=== PATIENT | female | born 1960 | race Caucasian/White ===

== ENCOUNTER → 2020-05-14 12:13 | Outpatient (BNVA) | payer MEDICARE, MEDICAID, SELFPAY | PROVIDERS: PCP Internal Medicine; Referring Provider Internal Medicine; Visit Provider Student in an Organized Health Care Education/Training Program | DX: M25.50 Pain in unspecified joint (principal); M67.911 Unspecified disorder of synovium and tendon, right shoulder | CPT/HCPCS: 20610; 99202 ==

== ENCOUNTER 2020-06-04 09:32 | Outpatient (REF) | payer MEDICARE, MEDICAID, SELFPAY ==
--- NOTE | ~2020-06-04 | XR_ITS ---
EXAMINATION: BILATERAL SHOULDER. CERVICAL SPINE 3 VIEWS. CLINICAL INFORMATION: Bilateral shoulder pain. Neck pain. COMPARISON: None TECHNIQUE: 3 views each shoulder. Cervical spine 4 views. FINDINGS: CERVICAL SPINE: There is mild straightening of cervical lordosis. There is loss of C4-C5, C5-C6 and C6-C7 disc heights with moderate ventral spondylosis. Rest the disc heights are normal. No visible acute fracture, dislocation or lytic process seen. There is moderate bilateral facet arthropathy at C3-C4 on the right bilaterally C4-C5 and C5-C6 disc levels. The prevertebral soft tissues are normal. RIGHT SHOULDER: There is a small inferior acromial spurring. Mild loss of right AC joint is seen. The glenohumeral joint space is normal. There is no acute fracture, dislocation or lytic process seen. LEFT SHOULDER: The glenohumeral joint space is reduced with mild inferior spurring. The AC joint space is minimal diffuse. No visible fracture, dislocation or subluxation seen. The soft tissues are normal. XR/XR shoulder RT min 2V IMPRESSION: General disc changes C4-C5 through C6-C7 disc level. No, dislocation or subluxation seen. No visible acute fracture or dislocation seen. Mild degenerative changes bilateral glenohumeral and AC joints. There is inferior right acromial and lateral humeral head spurring.
--- NOTE | ~2020-06-04 | XR_ITS ---
EXAMINATION: BILATERAL SHOULDER. CERVICAL SPINE 3 VIEWS. CLINICAL INFORMATION: Bilateral shoulder pain. Neck pain. COMPARISON: None TECHNIQUE: 3 views each shoulder. Cervical spine 4 views. FINDINGS: CERVICAL SPINE: There is mild straightening of cervical lordosis. There is loss of C4-C5, C5-C6 and C6-C7 disc heights with moderate ventral spondylosis. Rest the disc heights are normal. No visible acute fracture, dislocation or lytic process seen. There is moderate bilateral facet arthropathy at C3-C4 on the right bilaterally C4-C5 and C5-C6 disc levels. The prevertebral soft tissues are normal. RIGHT SHOULDER: There is a small inferior acromial spurring. Mild loss of right AC joint is seen. The glenohumeral joint space is normal. There is no acute fracture, dislocation or lytic process seen. LEFT SHOULDER: The glenohumeral joint space is reduced with mild inferior spurring. The AC joint space is minimal diffuse. No visible fracture, dislocation or subluxation seen. The soft tissues are normal. XR/XR cervical spine 2V IMPRESSION: General disc changes C4-C5 through C6-C7 disc level. No, dislocation or subluxation seen. No visible acute fracture or dislocation seen. Mild degenerative changes bilateral glenohumeral and AC joints. There is inferior right acromial and lateral humeral head spurring.
--- NOTE | ~2020-06-04 | XR_ITS ---
EXAMINATION: BILATERAL SHOULDER. CERVICAL SPINE 3 VIEWS. CLINICAL INFORMATION: Bilateral shoulder pain. Neck pain. COMPARISON: None TECHNIQUE: 3 views each shoulder. Cervical spine 4 views. FINDINGS: CERVICAL SPINE: There is mild straightening of cervical lordosis. There is loss of C4-C5, C5-C6 and C6-C7 disc heights with moderate ventral spondylosis. Rest the disc heights are normal. No visible acute fracture, dislocation or lytic process seen. There is moderate bilateral facet arthropathy at C3-C4 on the right bilaterally C4-C5 and C5-C6 disc levels. The prevertebral soft tissues are normal. RIGHT SHOULDER: There is a small inferior acromial spurring. Mild loss of right AC joint is seen. The glenohumeral joint space is normal. There is no acute fracture, dislocation or lytic process seen. LEFT SHOULDER: The glenohumeral joint space is reduced with mild inferior spurring. The AC joint space is minimal diffuse. No visible fracture, dislocation or subluxation seen. The soft tissues are normal. XR/XR shoulder LT min 2V IMPRESSION: General disc changes C4-C5 through C6-C7 disc level. No, dislocation or subluxation seen. No visible acute fracture or dislocation seen. Mild degenerative changes bilateral glenohumeral and AC joints. There is inferior right acromial and lateral humeral head spurring.
[2020-06-04 10:22] LABS: MANUAL DIFF FLAG NO
[2020-06-04 10:29] LABS: Basophils Absolute Auto 0.1 X10*3/uL (0.0-0.2); Basophils Percent Auto 0.8 % (0-2); Eosinophils Absolute Auto 0.2 X10*3/uL (0.0-0.4); Eosinophils Percent Auto 2.9 % (0-4); Hematocrit 41.7 % (37-47); Hemoglobin 13.9 g/dl (12.0-16.0); Imm Gran Abs Auto 0.02 X10*3/uL (0.00-0.03); Imm Gran Pct Auto 0.3 % (0.0-0.4); Lymphocytes Absolute Auto 2.6 X10*3/uL (1.2-4.9); Lymphocytes Percent Auto 36.7 % (20-40); Mean Corpuscular HGB Conc 33.3 g/dl (31.0-35.0); Mean Corpuscular Hemoglobin 29.6 pg (27.0-33.0); Mean Corpuscular Volume 88.7 fL (80-98); Mean Platelet Volume 11.9 fL (9.4-12.3); Monocytes Absolute Auto 0.6 X10*3/uL (0.1-1.2); Monocytes Percent Auto 8.1 % (2-11); Neutrophils Absolute Auto 3.7 X10*3/uL (2.0-8.3); Neutrophils Percent Auto 51.2 % (45-73); Platelet Count 253 X10*3/uL (160-400); Red Cell Distribution Width 14.4 % (11.0-16.0); White Blood Count 7.2 X10*3/uL (4.8-10.8)
[2020-06-04 10:56] LABS: Alanine Aminotransferase 17 U/L (0-31); Albumin Level 4.4 g/dL (3.5-5.0); Alkaline Phosphatase 63 U/L (39-117); Anion Gap 14 (12-20); Aspartate Amino Transferase 16 U/L (5-31); Bilirubin Total 0.3 mg/dL (0.0-1.0); Blood Urea Nitrogen 16 mg/dL (9-16); C Reactive Protein 1.15 mg/dL (< or = 0.50); Calcium 9.6 mg/dL (8.4-10.2); Carbon Dioxide 28 mmol/L (22-29); Chloride 102 mmol/L (96-108); Estimated Glomerular Filt Rate > 60; Glucose Random 123 mg/dL (60-115); Potassium 3.6 mmol/L (3.3-5.1); Rheumatoid Factor < 15.0 IU/mL (<15.0); Sodium 140 mmol/L (135-145); Total Protein 7.4 g/dL (6.5-8.0)
[2020-06-04 11:38] LABS: Erythrocyte Sedimentation Rate 29 MM/HR (0-20)
[2020-06-07 14:38] LABS: Cyclic Citrullinated Peptide <16 UNITS
== END 2020-06-04 09:33 | disposition home or self-care (01) ==
LOC: HO.LAB 09:32
PROVIDERS: PCP Internal Medicine; Visit Provider Student in an Organized Health Care Education/Training Program
DX: M25.50 Pain in unspecified joint (principal)
CPT/HCPCS: 36415; 72040; 73030; 80053; 85025; 85652; 86140; 86200; 86431

== ENCOUNTER → 2020-06-17 09:02 | Outpatient (BNVA) | payer MEDICARE, MEDICAID, SELFPAY | PROVIDERS: PCP Internal Medicine; Visit Provider Student in an Organized Health Care Education/Training Program | DX: M25.50 Pain in unspecified joint (principal); M67.911 Unspecified disorder of synovium and tendon, right shoulder | CPT/HCPCS: 99212 ==

== ENCOUNTER 2020-08-12 08:00 | Outpatient (RCR) | payer MEDICARE, MEDICAID, SELFPAY ==
--- NOTE | 2020-06-22 16:00 | MHC.PT.EP ---
[facility] [place] [facility] [place] [facility] [place] [facility] [address] [place] [address] [phone] F: [phone] F: [phone] F: [phone] F: [phone] Physical Therapy Plan of Care Date of Evaluation: 06/22/20 Date of Surgery: N/A Diagnosis: bilateral shoulder and neck pain Assessment: pt presents to physical therapy with pain, decreased range of motion, decreased strength, impaired functional mobility, impaired postural awareness, and gait deviations. pt is a good candidate for skilled PT due to age, potential remediation of impairments, typical disease/condition progression and prognosis, comorbidities, and motivation. pt would benefit from tailored strengthening and stretching exercise program, functional training, gait training, postural re-training, neuromuscular re-education, modalities as needed for pain, equipment safety demonstration. Frequency and Duration: The patient will be seen 1x/wk for 8 wks Short Term Goals: pt will be I w/ HEP to promote self-management of condition. pt will improve R shoulder abduction by 15 degrees to promote ease in reaching for objects on higher shelves. Chocolate Dipper Goals: pt will report statistically significant improvement in self-reported outcome measure, SPADI, to promote return to PLOF. pt will report <1/10 shoulder pain with reaching behind her back to promote ease in upper body dressing. Treatment Plan: Modalities to reduce pain, spasms and effusion. Manual therapy to restore motion and function. Therapeutic exercise to improve strength and flexibility. Neuromuscular re-education for posture and balance. Therapeutic activities to return to functional activities of daily living. Electronically signed by: Lisa Mark PT, DPT Please sign and return to therapist. Thank you for your referral.
== END 2020-08-23 12:10 | disposition other institution (70) ==
LOC: HO.PTWFD 08:00
PROVIDERS: Visit Provider Student in an Organized Health Care Education/Training Program
DX: M25.50 Pain in unspecified joint (principal)
CPT/HCPCS: 97110; 97140; 97161

== ENCOUNTER 2020-09-28 09:00 | Outpatient (RCR) | payer MEDICARE, MEDICAID, SELFPAY | END 2020-10-08 12:49 | disposition other institution (70) | LOC: HO.PTWFD 09:00 | PROVIDERS: Visit Provider Physician Assistant | DX: M17.11 Unilateral primary osteoarthritis, right knee (principal) | CPT/HCPCS: 97110; 97140; 97162; 97535 ==